=== PATIENT | female | born 1965 | race American Indian/Alaskan Native ===

== ENCOUNTER 2016-07-06 16:26 | Emergency (ER) | payer MEDICAID, OTHER ==
--- NOTE | 2016-07-06 17:30 | C.PDOC ---
History Of Present Illness 50 yo female w/PMHx of HTN, hypercholesterolemia, come in for evaluation of sore throat, productive cough with greenish sputum for past 5 days. Pt reports, throat pain getting worse over time, with some pain on swallow. Cough is worse at night time " feels like throat is tightened up". Pt admits, was seen by PMD 3 days ago and given Rx: Claritin without improvement in symptoms. Otherwise, pt denies fever, chills, headache, dizziness, neck pain, drooling, dyspnea, CP, SOB, wheezing, diaphoresis, palpitation, abd. pain, N/V/D, back pain, UTI sx. Ambulate to ED for evaluation, not n any apparent distress. Time Seen by Provider: 07/06/16 16:58 Chief Complaint (Nursing): Cough, Cold, Congestion History Per: Patient History/Exam Limitations: no limitations Onset/Duration Of Symptoms: Days (5) Past Medical History Reviewed: Historical Data, Nursing Documentation, Vital Signs Vital Signs: Last Vital Signs Temp 98.6 F 07/06/16 16:34 Pulse 77 07/06/16 16:34 Resp 15 07/06/16 16:34 BP 107/72 07/06/16 16:34 Pulse Ox 96 07/06/16 17:33 - Medical History PMH: Anxiety, Depression, HTN, Hypercholesterolemia - [facility] Procedures PERCUTAN NEEDLE BIOPSY OF BREAST (07/21/04) Family History: States: No Known Family Hx - Social History Hx Tobacco Use: No Hx Alcohol Use: No Hx Substance Use: No - Immunization History Hx Tetanus Toxoid Vaccination: No Hx Influenza Vaccination: No Hx Pneumococcal Vaccination: No Review Of Systems Except As Marked, All Systems Reviewed And Found Negative. Constitutional: Negative for: Fever, Chills ENT: Positive for: Throat Pain (Sore throat ) Cardiovascular: Negative for: Chest Pain, Palpitations Respiratory: Positive for: Cough (Productive ), Sputum (Greenish ). Negative for: Shortness of Breath, Wheezing Gastrointestinal: Negative for: Nausea, Vomiting, Abdominal Pain, Diarrhea Musculoskeletal: Negative for: Neck Pain, Back Pain Neurological: Negative for: Headache, Dizziness Physical Exam - Physical Exam Appears: Well, Non-toxic, No Acute Distress Skin: Normal Color, Warm, Dry, No Rash Eye(s): bilateral: PERRL Nose: Discharge (scant clear B/L rhinorhea) Oral Mucosa: Moist, No Drooling Throat: Erythema (mild B/L), No Exudate, No Drooling Neck: Supple Cardiovascular: Rhythm Regular Respiratory: No Decreased Breath Sounds, No Accessory Muscle Use, No Rales, No Rhonchi, No Stridor, No Wheezing Gastrointestinal/Abdominal: Soft, No Tenderness Back: No CVA Tenderness Extremity: No Pedal Edema Neurological/Psych: Oriented x3, Normal Speech ED Course And Treatment O2 Sat by Pulse Oximetry: 96 Pulse Ox Interpretation: Normal - Radiology CXR: Interpreted by Me, Viewed By Me CXR Interpretation: Yes: No Acute Disease Progress Note: On re-evaluation, pt is not in any apparent distress. Afebrile, hemodynamicaly stable. Non-toxic. Tolerate Po wlel in ED. PulseOx 96% rA. ENT : no acute findings. neck: supple. Lungs: CTA B/L, BS equal B/L. Abd: benign. Neurologicaly intact. CXR (-) acute findings. Pt has clinical findings c/w bronchitis. Pt advised on course of ds, and ref. to f/u with PMD in 1-2 days for re-eavl. return if any worsening or new changes. Medical Decision Making Medical Decision Making: PLAN: * CXR * Zithromycin PO * Prednisone PO Disposition Counseled Patient/Family Regarding: Studies Performed, Diagnosis, Need For Followup, Rx Given - Disposition Referrals: Rigoberto Reed MD [Non-Staff] - Disposition: HOME/ ROUTINE Disposition Time: 17:44 Condition: STABLE Additional Instructions: Encourage fluids take medication as prescribed Follow up with PMD in 2-3 days for re-evaluation. return to ED if any worsening or new changes. 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 - Scribe Statement The provider has reviewed the documentation as recorded by the Scribe Nadege Worthington All medical record entries made by the Scribe were at my direction and personally dictated by me. I have reviewed the chart and agree that the record accurately reflects my personal performance of the history, physical exam, medical decision making, and the department course for this patient. I have also personally directed, reviewed, and agree with the discharge instructions and disposition.
[2016-07-06 17:58] VITALS: BP 119/72; PULSE 75; RESP 18; TEMP 98.2; O2SAT 98
--- NOTE | 2016-07-06 18:02 | RAD ---
HISTORY: Cough COMPARISON: Comparison is made to the previous x-ray dated 12/24/2015 TECHNIQUE: Chest PA and lateral FINDINGS: LUNGS: No active pulmonary disease. PLEURA: No significant pleural effusion identified. No pneumothorax apparent. CARDIOVASCULAR: Normal. OSSEOUS STRUCTURES: No significant abnormalities. VISUALIZED UPPER ABDOMEN: Normal. OTHER FINDINGS: None. IMPRESSION: No active disease.
== END 2016-07-06 17:58 | disposition home or self-care (01) ==
LOC: C.ER 16:26
DX: J40 Bronchitis, not specified as acute or chronic (principal)

== ENCOUNTER 2018-07-05 18:25 | Emergency (ER) | payer MEDICAID, OTHER ==
[2018-07-05 18:42] VITALS: BP 117/83; PULSE 77; RESP 16; TEMP 98.9; O2SAT 98
--- NOTE | 2018-07-05 19:20 | C.PDOC ---
History Of Present Illness 52 y/o female pt presents to the ER c/o q-tip cotton stuck in left ear. Pt denies fever, chills, change in hearing and any other complaints. Time Seen by Provider: 07/05/18 19:11 Chief Complaint (Nursing): ENT Problem History Per: Patient History/Exam Limitations: None Onset/Duration Of Symptoms: Days Current Symptoms Are (Timing): Still Present Past Medical History Reviewed: Historical Data, Nursing Documentation, Vital Signs Vital Signs: Last Vital Signs Temp 98.9 F 07/05/18 18:40 Pulse 77 07/05/18 18:40 Resp 16 07/05/18 18:40 BP 117/83 07/05/18 18:40 Pulse Ox 98 07/05/18 18:40 Primary Care Provider: Samantha Cantrell - Medical History PMH: Anxiety, Depression, HTN, Hypercholesterolemia - [facility] Procedures PERCUTAN NEEDLE BIOPSY OF BREAST (07/21/04) Family History: States: No Known Family Hx - Social History Hx Tobacco Use: No Hx Alcohol Use: No Hx Substance Use: No - Immunization History Hx Tetanus Toxoid Vaccination: No Hx Influenza Vaccination: No Hx Pneumococcal Vaccination: No Review Of Systems Except As Marked, All Systems Reviewed And Found Negative. Constitutional: Negative for: Fever, Chills ENT: Positive for: Other (q-tip cotton stuck in left ear ). Negative for: Ear Pain Physical Exam - Physical Exam Appears: Non-toxic, No Acute Distress Skin: Warm, Dry Head: Normacephalic Ear(s): Left: Other (FB visualized in te left ear canal; no tenderness or swelling), Right: Normal Neck: Normal Neurological/Psych: Oriented x3, Normal Speech ED Course And Treatment O2 Sat by Pulse Oximetry: 98 (RA) Pulse Ox Interpretation: Normal Progress Note: Alligator forcep was used to remove cotton tip. Otoscopic visualization of left ear is normal, no erythema or TM bulging. 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 - Scribe Statement The provider has reviewed the documentation as recorded by the Scar Tang Do All medical record entries made by the Russellibe were at my direction and personally dictated by me. I have reviewed the chart and agree that the record accurately reflects my personal performance of the history, physical exam, medical decision making, and the department course for this patient. I have also personally directed, reviewed, and agree with the discharge instructions and disposition.
== END 2018-07-05 19:39 | disposition home or self-care (01) ==
LOC: C.ER 18:25
DX: T16.2XXA Foreign body in left ear, initial encounter (principal); X58.XXXA Exposure to other specified factors, initial encounter